=== PATIENT | male | born 1990 | race Hispanic/Latino ===

== ENCOUNTER 2023-10-06 23:29 | Observation (INO) | payer SELFPAY ==
--- NOTE | ~2023-10-06 | US_ITS ---
US abdomen limited INDICATION: Elevated liver function tests. PROCEDURE: Realtime right upper abdominal ultrasound. COMPARISON: No prior studies for comparison. FINDINGS: The pancreas is normal without focal mass or pancreatic ductal dilation. Liver echotexture is increased, consistent with fatty infiltration. There is normal directional flow in the portal ve in. The gallbladder is normal without stones, gallbladder wall thickening or pericholecystic fluid. Comm on bile duct measures 2 mm. No sonographic Trotter's sign. IMPRESSION: 1: Fatty infiltration of the liver. Reviewed, dictated and finalized at location B.
[2023-10-06 23:48] VITALS: BP 144/85; PULSE 117; RESP 15; TEMP 36.8; O2SAT 97
[2023-10-07] VITALS (14 sets, daily range): BP systolic 124–168; BP diastolic 71–96; PULSE 70–99; RESP 17–20; TEMP 36.5–37.3; O2SAT 98–99
--- NOTE | 2023-10-07 00:03 | ECG_ITS ---
Test Date: 2023-10-07 00:41:36 Measurements Intervals [place] Rate: 95 P: 51 OR: 157 QRS: 45 QRSD: 87 T: 17 QT: 369 QTc: 466 Interpretive Statements SINUS RHYTHM No previous ECG available for comparison Electronically Signed On 10-07-2023 12:43:35 CDT by Ari Castillo M.D.
[2023-10-07] MEDS: SODIUM CHLORIDE 0.9% IV 1,000 ML 999 ML IV CONT ×2 (00:20→00:21)
[2023-10-07] MEDS: LORazepam INJ (*CRX) 2 MG/ML VIAL 1 MG IV PUSH (00:23)
--- NOTE | 2023-10-07 00:26 | ED.GENADULT ---
HPI - General Adult General Chief complaint: Unspecified <Angie Pitt PA-C - Last Filed: 10/07/23 01:16> Stated complaint: cramping, out in heat all day <LEV Galindo Last Filed: 10/07/23 01:16> Time Seen by Provider: 10/06/23 23:42 <Angie Pitt PA-C - Last Filed: 10/07/23 01:16> History of Present Illness HPI narrative: 33-year-old Kiswahili-speaking male presents with his brother and comes in at bedside for diffuse cramping. 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 Patient is not very cooperative and it is difficult to get answers from him. His family at bedside assist with history. 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 States he has been drinking a lot a water without improvement. he denies chest pain or shortness of breath, dark urine, fever. Upon further questioning he admits to drinking 12 beers daily for an unknown amount of time. States his last drink was 5 days ago. He states he stopped drinking because he does not want to drink anymore. He has no history of alcohol withdrawal or seizures. He denies headache, agitation, hallucinations. He is reporting some anxiety. <Angie Pitt PA-C - Last Filed: 10/07/23 01:16> Related Data Home medications: Home Medications Medication Instructions Recorded Confirmed No Home Medications 10/07/23 10/07/23 <Angie Pitt PA-C - Last Filed: 10/07/23 01:16> Allergies/adverse reactions: Allergies Allergy/AdvReac Type Severity Reaction Status Date / Time No Known Allergies Allergy Verified 10/07/23 00:16 <LEV Galindo Last Filed: 10/07/23 01:16> Review of Systems Review of Systems: CONSTITUTIONAL: Denies fever, chills, or sweats. EYES: Denies visual changes, redness, or discharge. ENT: Denies rhinorrhea, congestion, sore throat, or otalgia. CARDIOVASCULAR: Denies chest pain, palpitations, or edema. RESPIRATORY: Denies cough or dyspnea. GASTROINTESTINAL: Denies abdominal pain, nausea, vomiting, or diarrhea. GENITOURINARY: Denies dysuria or hematuria. SKIN: Denies rash or itching. MUSCULOSKELETAL: See HPI NEUROLOGIC: Denies headache, numbness, or weakness. PSYCHIATRIC: Denies anxiety or depression. <Angie Pitt PA-C - Last Filed: 10/07/23 01:16> [facility] Family History Family History: Family History Other Unknown family medical history <Angie Pitt PA-C - Last Filed: 10/07/23 01:16> Social History Social History: Social History (Updated 10/07/23 @ 09:45 by Chantal Perez APRN) Smoking status: Former smoker Tobacco type: cigarettes Alcohol intake: current Drinks per week: 84 Substance use: never Substance use type: does not use Do You Feel Safe in your Home?: Yes Lack of Transportation: YES Lack of Food: Never True Current Housing: I Have Housing Concerned About Future Housing: No Difficulty Paying Gas/Electric Bills: No Difficulty Paying for Meds: YES Currently Unemployed: No Education: Grade School Difficulty w/ Childcare or Family Care: No Additional living arrangements comments: Lives with his brother Occupation/Education: occupation 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 HEAD: Normocephalic, atraumatic. EYES: PERRLA and EOMI. ENT: Nares clear, no rhinorrhea or epistaxis. Mucous membranes moist. tongue fasciculations NECK: Supple. CHEST: Clear to auscultation. No respiratory distress. HEART: Regular rate and rhythm. No murmur heard. Normal peripheral pulses. ABDOMEN: Soft, nontender, nondistended, normal active bowel sounds. EXTREMITIES: Normal range of motion. No edema. SKIN: Warm, dry, no rash. JAMSE
[2023-10-07 00:35] LABS: Ethanol < 10 mg/dL (<10)
[2023-10-07 00:36] LABS: Magnesium 1.6 mg/dL (1.6-2.3)
[2023-10-07 00:39] LABS: Alanine Aminotransferase 53 U/L (6-50); Albumin Level 5.8 g/dL (3.5-5.1); Alkaline Phosphatase 110 U/L (38-126); Anion Gap 19 mmol/L (4-12); Aspartate Amino Transferase 111 U/L (17-59); Blood Urea Nitrogen 23 mg/dL (9-20); Calcium 10.1 mg/dL (8.4-10.2); Carbon Dioxide 23 mmol/L (22-30); Chloride 95 mmol/L (98-107); Estimated CRCL calculation 28 ml/min; Estimated Glomerular Filt Rate 26; Glucose 170 mg/dL (65-110); Potassium 3.2 mmol/L (3.4-5.0); Sodium 137 mmol/L (137-145)
[2023-10-07 00:41] LABS: Basophils Percent Auto 0.4 % (0.2-1.2); Eosinophils Percent Auto 0.1 % (0-4.4); Hematocrit 44.9 % (42.0-52.0); Hemoglobin 15.7 g/dL (14.0-18.0); Immature Granulocyte Absolute 0.03 K/mm3 (0.00-0.031); Immature Granulocyte Percent A 0.3 % (0-0.5); Lymphocytes Absolute Auto 0.98 K/mm3 (0.9-3.2); Lymphocytes Percent Auto 8.8 % (18.3-44.2); Mean Corpuscular Hemoglobin 28.3 pg (26-34); Monocytes Absolute Auto 0.7 K/mm3 (0.1-0.6); Monocytes Percent Auto 6.2 % (2.6-8.5); Neutrophils Absolute Auto 9.4 K/mm3 (1.3-6.7); Neutrophils Percent Auto 84.2 % (45.5-73.1); Platelet Count Result 252 k/mm3 (150-375); Red Blood Count 5.54 M/mm3 (4.6-6.20); Red Cell Distribution Width 13.9 % (11.5-14.5); White Blood Count 11.2 K/mm3 (4.5-10.0)
[2023-10-07 00:58] LABS: Creatine Kinase 1476 U/L (55-170)
[2023-10-07] MEDS: POTASSIUM CHLORIDE 20 MEQ PACKET (FOR LIQUID) 40 MEQ PO (01:25)
[2023-10-07 01:35] LABS: Glucose Point of Care 137 mg/dl (65-105)
[2023-10-07] MEDS: SODIUM CHLORIDE 0.9% IV 1,000 ML 125 ML IV CONT ×2 (01:38→21:11)
--- NOTE | 2023-10-07 02:11 | PC.NURSE ---
Pt unwilling to provide urine sample at this time.
--- NOTE | 2023-10-07 02:52 | ADMGEN ---
This patient, Vic Kimble, was admitted to 2 Medical Room 257-. Patient/family oriented to hospital policies and general routines including ID bracelet, bed and alarms, visiting hours, pain management, procedures, bathroom and other care routines, personal items, smoking policy, room service/diet, and visiting hours. Information on how to activate the Rapid Response Team has been discussed. Patient/Family are encouraged to report perceived risks to care and to ask questions if they do not understand what they are told or what they should do.
[2023-10-07 03:02] LABS: Amphetamine Screen Urine Negative (Negative); Barbiturate Screen Urine Negative (Negative); Benzodiazepines Screen Urine Negative (Negative); Cannabinoid Screen Urine Negative (Negative); Cocaine Screen Urine Negative (Negative); Methadone Screen Urine Negative (Negative); Opiate Screen Urine Negative (Negative); Phencyclidine Screen Urine Negative (Negative)
[2023-10-07 03:19] LABS: Appearance Urine Clear (Clear); Bacteria Urine None Seen /hpf; Bilirubin Urine Negative (Negative); Blood Urine Negative (Negative); Color Urine Yellow (Yellow); Glucose Urine UA Negative (Negative); Hyaline Casts Urine Present /lpf; Ketones Urine Negative (Negative); Leukocyte Esterase Ur Negative LEU/UL (Negative); Need Manual Microscopic Reviewed; Nitrate Urine Negative (Negative); Non Pathogenic Casts >20; Protein Urine Trace mg/dL (Negative); RBC Urine 0-2 /hpf (0-2); Specific Grav Ur 1.012 (1.001-1.035); Squamous Epithelial Cell Urine None Seen /hpf (Few); WBC Urine 0-5 /hpf (0-3); pH Urine 5.5 (5.0-9.0)
[2023-10-07 03:20] LABS: Add Urine Microscopic? YES
[2023-10-07] MEDS: chlordiazePOXIDE (*CRX) 25 MG CAPSULE 50 MG PO ×3 (05:22→17:19)
--- NOTE | 2023-10-07 07:09 | PM.IMHP ---
H&P: [facility] History of Present Illness Date/Time: 10/07/23 07:09 Chief Complaint: Muscle cramps Narrative: This is a 33-year-old [place] Citizen-speaking male who presented to the emergency room with complaints of generalized cramping. He does not appear to have a significant medical history other than ETOH abuse. The patient provides the following history with use of the vp marketing. 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 When he came home from work he was having cramping and his entire body. He denies headache, dizziness, chest pain, shortness a breath, nausea, vomiting. He states that he has an appetite, is urinating clear urine, and had a bowel movement yesterday. Today his cramping has resolved. He does state that he does drink 12 beers a day. His last drink was 5 days ago. He states that he has had withdrawals to alcohol before in the form of anxiety and tremors. He states he has never had a seizure from withdrawal. On exam he appears diaphoretic. In the ED labs were significant for white count 11.2, potassium 3.2, chloride 95, and a gap 19, BUN 23, creatinine 2.8, glucose 170, T bili 2.0, AST 111, ALT 53, and CK 1476. His UA, toxicology screen, and ethanol were all negative. EKG on admission showed normal sinus rhythm with a rate of 95. He received 2 L of normal saline, 40 mEq of potassium chloride, and Ativan 1 mg IV push. He was admitted in this setting for IV hydration for rhabdomyolysis and treatment alcohol withdrawal. Review of Systems Review of Systems: All systems reviewed & are unremarkable except as noted in HPI and below [facility] Family History Family History Other Unknown family medical history Social History Social History (Updated 10/07/23 @ 09:45 by Chantal Perez APRN) Smoking status: Former smoker Tobacco type: cigarettes Alcohol intake: current Drinks per week: 84 Substance use: never Substance use type: does not use Do You Feel Safe in your Home?: Yes Lack of Transportation: YES Lack of Food: Never True Current Housing: I Have Housing Concerned About Future Housing: No Difficulty Paying Gas/Electric Bills: No Difficulty Paying for Meds: YES Currently Unemployed: No Education: Grade School Difficulty w/ Childcare or Family Care: No Additional living arrangements comments: Lives with his brother Occupation/Education: occupation 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 Spiritual care concerns: No Meds Home Medications and Allergies Home Medications Medication Instructions Recorded Confirmed Type No Home Medications 10/07/23 10/07/23 History Allergies Allergy/AdvReac Type Severity Reaction Status Date / Time No Known Allergies Allergy Verified 10/07/23 00:16 Vital Signs Vital Signs - 24 hr 10/06/23 23:48 10/07/23 01:28 10/07/23 02:09 Temperature 98.3 F Pulse Rate 117 H 99 91 Pulse Rate [Monitor] Respiratory Rate 15 17 Blood Pressure 144/85 H 168/96 H Pulse Oximetry 97 99 Oxygen Delivery Room Air 10/07/23 03:19 10/07/23 04:01 10/07/23 04:00 Temperature Pulse Rate 88 80 Pulse Rate [Monitor] 80 Respiratory Rate Blood Pressure Pulse Oximetry Oxygen Delivery Exam Narrative: General: Diaphoretic, no acute distress, appears stated age. HEENT: normocephalic, atraumatic. Mucous membranes moist. EOMI, PERRLA, bilateral sclera anicteric, + conjunctival injection. Neck supple without JVD, lymphadenopathy, or bruit. Respiratory: clear to auscultation bilaterally. No rales/rhonic/wheezes. Cardiovascular: Regular rate and rhythm, normal S1-S2 upon auscultation. No murmurs, rubs, or clicks. PMI is nondisplaced, capillary refill less than 3 second. Abdomen: Soft, round, no pulsatile masses, nondistended and nontender. No rebound, no guarding. No CVA tenderness, no hepatosplenomegaly. Bowel sounds present to all f
[2023-10-07 08:38] LABS: Glucose Point of Care 125 mg/dl (65-105)
[2023-10-07 11:33] LABS: Hemoglobin 12.8 g/dL (14.0-18.0); Mean Corpuscular HGB Conc 33.7 g/dl (32-36); Mean Corpuscular Hemoglobin 28.6 pg (26-34); Mean Platelet Volume 9.7 fl (7.4-10.4); Platelet Count Result 179 k/mm3 (150-375); Red Blood Count 4.47 M/mm3 (4.6-6.20); Red Cell Distribution Width 14.2 % (11.5-14.5)
[2023-10-07 11:46] LABS: Alanine Aminotransferase 42 U/L (6-50); Albumin Level 4.4 g/dL (3.5-5.1); Alkaline Phosphatase 79 U/L (38-126); Anion Gap 11 mmol/L (4-12); Aspartate Amino Transferase 102 U/L (17-59); Bilirubin,Total 1.7 mg/dL (0.2-1.3); Blood Urea Nitrogen 15 mg/dL (9-20); Calcium 8.6 mg/dL (8.4-10.2); Carbon Dioxide 21 mmol/L (22-30); Chloride 107 mmol/L (98-107); Creatine Kinase 1245 U/L (55-170); Estimated CRCL calculation 93 ml/min; Estimated Glomerular Filt Rate > 60; Glucose 115 mg/dL (65-110); Magnesium 2.2 mg/dL (1.6-2.3); Potassium 3.5 mmol/L (3.4-5.0); Sodium 139 mmol/L (137-145)
[2023-10-07 11:51] LABS: Glucose Point of Care 121 mg/dl (65-105)
[2023-10-07 16:52] LABS: Glucose Point of Care 124 mg/dl (65-105)
[2023-10-08] VITALS: PULSE 70
[2023-10-08 00:16] LABS: Glucose Point of Care 110 mg/dl (65-105)
[2023-10-08 04:00] VITALS: PULSE 72
[2023-10-08 04:46] VITALS: BP 130/80; PULSE 67; RESP 20; TEMP 36.6; O2SAT 100
[2023-10-08] MEDS: SODIUM CHLORIDE 0.9% IV 1,000 ML 125 ML IV CONT (05:11)
[2023-10-08 05:38] LABS: Creatine Kinase 739 U/L (55-170); Magnesium 2.1 mg/dL (1.6-2.3)
[2023-10-08 05:58] LABS: Glucose Point of Care 92 mg/dl (65-105)
--- NOTE | 2023-10-08 07:21 | PM.DS ---
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 CK elevated 1476, Cr 2.80, Tbili 2.0, AST 111, ALT 53 Received 2 L NS in the ED as well as a banana bag, then started on maintenance fluids at 125 ml per hour Repeating labs at noon today Right upper quadrant ultrasound ordered--suspect lab elevation is from drinking and rhabdomyolysis. (2) ARMANDO (acute kidney injury): Code(s): N17.9 - Acute kidney failure, unspecified Status: Acute Assessment and Plan: 2/2 dehydration and rhabdomyolysis IVF hydration Replete electrolytes as needed Strict intake and output (3) Alcohol withdrawal: Qualifiers: Complication of substance-induced condition: uncomplicated Qualified Code(s): F10.930 - Alcohol use, unspecified with withdrawal, uncomplicated Code(s): F10.939 - Alcohol use, unspecified with withdrawal, unspecified Status: Acute Assessment and Plan: Patient has a Hx of ETOH abuse. Last drink was 5 days ago. CIWA protocol ordered Scheduled Librium with PRN Ativan for CIWA greater than 12 seizure precautions DS: Summary Hospital Course Reason for hospitalization: Rhabdomyolysis Hospital Course: This is a 33-year-old [place]-speaking male who presented to the emergency room with complaints of generalized cramping. He does not appear to have a significant medical history other than ETOH abuse. The patient provides the following history with use of the box toe cementer. 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 When he came home from work he was having cramping and his entire body. He denies headache, dizziness, chest pain, shortness a breath, nausea, vomiting. He states that he has an appetite, is urinating clear urine, and had a bowel movement yesterday. Today his cramping has resolved. He does state that he does drink 12 beers a day. His last drink was 5 days ago. He states that he has had withdrawals to alcohol before in the form of anxiety and tremors. He states he has never had a seizure from withdrawal. On exam he appears diaphoretic. In the ED labs were significant for white count 11.2, potassium 3.2, chloride 95, and a gap 19, BUN 23, creatinine 2.8, glucose 170, T bili 2.0, AST 111, ALT 53, and CK 1476. His UA, toxicology screen, and ethanol were all negative. EKG on admission showed normal sinus rhythm with a rate of 95. He received 2 L of normal saline, 40 mEq of potassium chloride, and Ativan 1 mg IV push. He was admitted in this setting for IV hydration for rhabdomyolysis and treatment alcohol withdrawal. Time Spent with Patient Time attestation: Total time spent providing and/or coordinating discharge services: 59 Exam Narrative: General: Diaphoretic, no acute distress, appears stated age. HEENT: normocephalic, atraumatic. Mucous membranes moist. EOMI, PERRLA, bilateral sclera anicteric, + conjunctival injection. Neck supple without JVD, lymphadenopathy, or bruit. Respiratory: clear to auscultation bilaterally. No rales/rhonic/wheezes. Cardiovascular: Regular rate and rhythm, normal S1-S2 upon auscultation. No murmurs, rubs, or clicks. PMI is nondisplaced, capillary refill less than 3 second. Abdomen: Soft, round, no pulsatile masses, nondistended and nontender. No rebound, no guarding. No CVA tenderness, no hepatosplenomegaly. Bowel sounds present to all four quadrants. No high pitch or tinkling sounds, resonant to percussion. Extremities: No cyanosis, clubbing, or edema present. Pulses are palpable 2/2. Active ROM to all four extremities. Neuro: Alert and orientated x 4. PERRLA. Cranial
[2023-10-08 12:24] LABS: Glucose Point of Care 115 mg/dl (65-105)
== END 2023-10-08 14:43 | disposition home or self-care (01) ==
LOC: ANHED 10-07 01:09 → ANH2MED 10-07 17:31
PROVIDERS: Nurse Practitioner Acute Care; Admitting Provider Internal Medicine; Emergency Provider Physician Assistant; Visit Provider Internal Medicine
DX: M62.82 Rhabdomyolysis (principal); N17.9 Acute kidney failure, unspecified; F10.930 Alcohol use, unspecified with withdrawal, uncomplicated; Z87.891 Personal history of nicotine dependence
CPT/HCPCS: 36415; 76705; 80053; 80307; 81001; 82550; 82948; 83735; 85025; 85027; 93005; 96361; 96365; 96366; 96375; 99285; A9270; G0378; J2060; J3411; J3475; J7030; J7042